=== PATIENT | female | born 1990 | race Caucasian/White ===

== ENCOUNTER 2016-10-14 21:18 | Emergency (ER) | payer OTHER ==
[~2016-10-14] VITALS: Ht 157.5 cm; Wt 68.0 kg
[2016-10-14 21:21] VITALS: BP 154/83; PULSE 98; RESP 16; TEMP 98.8; O2SAT 99
[2016-10-14 22:20] LABS: BACTERIA, URINE RARE /hpf; BLOOD, URINE NEG (NEG); COMMENT (UR) CULT NOT INDICATED; CULTURE IF INDICATED CULT NOT INDICATED; GLUCOSE,URINE NEG (NEG); KETONE, URINE NEG (NEG); NITRITE,URINE NEG (NEG); PH, URINE 5.5 (5.0-8.5); SQUAMOUS EPITHELIAL CELL URINE 2 /hpf (0-5); URINE COLOR LIGHT-YELLOW (YELLW/STRAW)
[2016-10-14 22:31] LABS: ANION GAP 9 MEQ/L (5-15); AST (GOT) 15 U/L (15-37); BICARBONATE 24.8 MEQ/L (21.0-32.0); BLOOD UREA NITROGEN 13 MG/DL (7-18); CHLORIDE 104 MEQ/L (98-107); GLOMERULAR FILTRATION RATE 78 ML/MIN (>89); POTASSIUM 3.6 MEQ/L (3.5-5.1); SODIUM (NA) 138 MEQ/L (136-145)
[2016-10-14 22:32] LABS: AUTOMATED NEUTROPHIL # 7.3 TH/MM3 (1.8-7.7); BASOPHIL % 0.3 % (0.0-2.0); EOSINOPHIL # 0.2 TH/MM3 (0-0.4); EOSINOPHIL % 1.8 % (0.0-4.0); HEMATOCRIT 41.1 % (35.0-46.0); HEMO FLAGS DIFF FINAL; LYMPH % 28.9 % (9.0-44.0); LYMPHOCYTE # 3.3 TH/MM3 (1.0-4.8); MEAN CELL VOLUME 88.6 FL (80.0-100.0); MEAN CORPUSCULAR HGB CONC 33.9 % (32.0-36.0); MONO % 5.8 % (0.0-8.0); NEUT % 63.2 % (16.0-70.0); PLATELET COUNT 213 TH/MM3 (150-450); RED BLOOD COUNT 4.64 MIL/MM3 (4.00-5.30); RED CELL DISTRIBUTION WIDTH 12.9 % (11.6-17.2); WHITE BLOOD COUNT 11.5 TH/MM3 (4.0-11.0)
[2016-10-14 22:35] LABS: ALKALINE PHOSPHATASE 61 U/L (45-117); ALT (GPT) 19 U/L (10-53); TOTAL BILIRUBIN ADULT 0.3 MG/DL (0.2-1.0)
[2016-10-15 03:22] LABS: BETA HCG QUANT 431 MIU/ML (0-5)
--- NOTE | 2016-10-15 03:43 | PD ---
HPI Chief Complaint: Related Problem Time Seen by Provider: 02:26 Travel History International Travel<30 days: No Contact w/Intl Traveler<30days: No Traveled to known affect area: No History of Present Illness HPI 26-year-old female with history of 2 ectopic pregnancies last year treated with methotrexate here for evaluation of possible ectopic . The patient had a positive home test. Her last menstrual period was September 13. She is having some cramping and some vaginal spotting. Cramping is mainly over her right lower quadrant. She states that her symptoms feel very similar to previous ectopic pregnancies. PFSH Past Medical History Diminished Hearing: No Gastrointestinal Disorders: Yes (hernia) GERD: Yes Genitourinary: Yes (KIDNEY REFLUX) Inguinal Hernia: Yes Immunizations Current: Yes Tetanus Vaccination: Unknown Influenza Vaccination: No ?: : 3 Para: 3 : 1 Past Surgical History Surgical History: No Previous Surgery Social History Alcohol Use: Yes (occ) Tobacco Use: Yes (09/26 PPD) Substance Use: No Allergies-Medications (Allergen,Severity, Reaction): Coded Allergies: Augmentin (Verified Allergy, Severe, THROAT SWELLING, 10/14/16) STATES THROAT CLOSED Flagyl (Verified Allergy, Severe, CONFUSED, 10/14/16) Reported Meds & Prescriptions Reported Meds & Active Scripts Active No Active Prescriptions or Reported Medications Review of Systems Except as stated in HPI: all other systems reviewed are Neg Physical Exam Narrative GENERAL: Pleasant, well-developed, well-nourished, comfortable, no acute distress. SKIN: Warm and dry. HEAD: Atraumatic. Normocephalic. EYES: Pupils equal and round. No scleral icterus. No injection or drainage. ENT: Mucous membranes pink and moist. CARDIOVASCULAR: Regular rate and rhythm. No murmur appreciated. RESPIRATORY: No accessory muscle use. Clear to auscultation. Breath sounds equal bilaterally. GASTROINTESTINAL: Abdomen soft, nondistended. Mild right lower quadrant tenderness without rebound or guarding. Normal bowel sounds. Rest of abdomen is soft and nontender. MUSCULOSKELETAL: No obvious deformities. No clubbing. No cyanosis. No edema. NEUROLOGICAL: Awake and alert. No obvious cranial nerve deficits. Motor grossly within normal limits. Normal speech. PSYCHIATRIC: Appropriate mood and affect; insight and judgment normal. Data Data Last Documented VS Vital Signs Date Time Temp Pulse Resp B/P Pulse Ox O2 Delivery O2 Flow Rate FiO2 1/21/17 02:28 16 10/14/16 21:21 98.8 98 154/83 99 Room Air Orders Complete Blood Count With Diff (10/14/16 21:34) Comprehensive Metabolic Panel (10/14/16 21:34) Urinalysis - C+S If Indicated (10/14/16 21:34) Ed Urine Pregnancytest Poc (10/14/16 21:34) Beta Hcg (Quant/Titer) (10/15/16 02:26) Us Pelvis (Ques Pr/Ect)W Trans (10/15/16 ) Lorazepam (Ativan) (10/15/16 05:00) Labs Laboratory Tests Test 10/14/16 10/14/16 21:40 21:45 Urine Color LIGHT-YELLOW Urine Turbidity CLEAR Urine pH 5.5 Urine Specific [place] 1.004 Urine Protein NEG mg/dL Urine Glucose (UA) NEG mg/dL Urine Ketones NEG mg/dL Urine Occult Blood NEG Urine Nitrite NEG Urine Bilirubin NEG Urine Urobilinogen LESS THAN 2.0 MG/DL Urine Leukocyte Esterase LARGE Urine WBC 7 /hpf Urine Squamous Epithelial 2 /hpf Cells Urine Bacteria RARE /hpf Microscopic Urinalysis Comment CULT NOT INDICATED White Blood Count 11.5 TH/MM3 Red Blood Count 4.64 MIL/MM3 Hemoglobin 13.9 GM/DL Hematocrit 41.1 % Mean Corpuscular Volume 88.6 FL Mean Corpuscular Hemoglobin 30.0 PG Mean Corpuscular Hemoglobin 33.9 % Concent Red Cell Distribution Width 12.9 % Platelet Count 213 TH/MM3 Mean Platelet Volume 8.4 FL Neutrophils (%) (Auto) 63.2 % Lymphocytes (%) (Auto) 28.9 % Monocytes (%) (Auto) 5.8 % Eosinophils (%) (Auto) 1.8 % Basophils (%) (Auto) 0.3 % Neutrophils # (Auto) 7.3 TH/MM3 Lymphocytes # (Auto) 3.3 TH/MM3 Monocytes # (Auto) 0.7 TH/MM3 Eosinophils # (Auto) 0.2 TH/MM3 Basophils # (Auto) 0.0 TH/MM3 CBC Comment DIFF FINAL Differential Comment Sodium Level 138 MEQ/L Potassium Level 3.6 MEQ/L Chloride Level 104 MEQ/L Carbon Dioxide Level 24.8 MEQ/L Anion Gap 9 MEQ/L Blood Urea Nitrogen 13 MG/DL Creatinine 0.87 MG/DL Estimat Glomerular Filtration 78 ML/MIN Rate Random Glucose 98 MG/DL Calcium Level 8.5 MG/DL Total Bilirubin 0.3 MG/DL Aspartate Amino Transf 15 U/L (AST/SGOT) Alanine Aminotransferase 19 U/L (ALT/SGPT) Alkaline Phosphatase 61 U/L Total Protein 7.9 GM/DL Albumin 4.1 GM/DL Human Chorionic Gonadotropin, 431 MIU/ML Quant MDM Medical Decision Making Medical Screen Exam Complete: Yes Emergency Medical Condition: Yes Differential Diagnosis Ectopic , ovarian cyst, ovarian torsion, normal , threatened , appendicitis, colitis, cystitis Narrative Course Vital signs show heart rate 98, blood pressure 154/83, pulse ox 99% on room air , oral temp of 98.8F. CBC is unremarkable. CMP is unremarkable. Beta hCG is 431. Blood type from previous ED visits is A+. UA is not suggestive of UTI. Pelvic ultrasound: CONCLUSION: 1. An intrauterine cannot be confirmed. 2. Thick rim cystic area in the right adnexa with thin peripheral flow on color Doppler is nonspecific in appearance, but could represent an ectopic , especially considering the history of multiple ectopic pregnancies in the past. 4:15 AM: Case discussed with on-call OB hospitalist who will present to the emergency department to evaluate the patient. Patient was evaluated at the bedside by OB hospitalist Dr. Molina who had a long discussion with the patient. He offered to observe her, however the patient does not wish to be observed at this time. Ectopic cannot exactly be confirmed at this time, however given her history and imaging studies , there is a high suspicion for ectopic . Her abdominal exam is benign. No peritoneal signs. Plan at this time is for the patient to be discharged home and to return in 48 hours for a repeat beta hCG. The patient was informed on when to return to the emergency Department sooner. She verbalizes understanding and agreement with plan. The patient has history of anxiety and is requesting something for her anxiety. I will give her a dose of Ativan. Diagnosis Primary Impression: Early stage of Referrals: Digital Sales Assistant 1 day Additional Instructions: Return to the emergency department in 48 hours for repeat beta hCG. Return to the emergency Department sooner for worsening symptoms or any other concerns as discussed. Scripts No Active Prescriptions or Reported Meds Disposition: 01 DISCHARGE HOME Condition: Stable Star Welch MD Oct 15, 2016 03:43
--- NOTE | 2016-10-15 04:08 | RADRPT ---
EXAM DATE/TIME: 10/15/2016 03:21 [facility] COMPARISON: US PELVIS (QUEST PREG/ECTOPIC) W/TRANSVAG, May 30, 2016, 17:35. INDICATIONS : Pelvic pain and vaginal bleeding. History of 2 ectopic pregnancies in the past year. LAB(S): Beta-hC MEDICAL HISTORY : . Gastroesophageal reflux disease. Hernia, inguinal. SURGICAL HISTORY : Inguinal hernia repair. ENCOUNTER: Subsequent ACUITY: 4-6 days PAIN SCORE: 7/10 LOCATION: Right pelvis MEASUREMENTS: UTERUS: 8.4 x 4.6 x 6.0 cm ENDOMETRIAL STRIPE: 11 mm RIGHT OVARY: 4.2 x 2.9 x 2.3 cm LEFT OVARY: 2.9 x 1.8 x 1.8 cm FINDINGS: The endometrium is a homogeneous echotexture in the body and the fundus. There is a small amount of endometrial fluid in the lower uterine segment. No myometrial abnormality is seen. In the right adnexa, there is a cystic structure with a thick surrounding rim which measures in aggre gate 2.2 x 1.8 x 1.6 cm. On color Doppler imaging, there is peripheral flow about this area. No carol e fluid seen in the right adnexal region. The left ovary has a normal appearance. There is a mild a mount of free fluid in the cul-de-sac. CONCLUSION: 1. An intrauterine cannot be confirmed. 2. Thick rim cystic area in the right adnexa with thin peripheral flow on color Doppler is nonspecifi c in appearance, but could represent an ectopic , especially considering the history of mult iple ectopic pregnancies in the past. Mata Franco MD on October 15, 2016 at 4:02 Board Certified Radiologist. This report was verified electronically.
[2016-10-15] MEDS ORDERED: LORazepam 1 MG TAB PO ONE (05:00)
--- NOTE | 2016-10-15 05:25 | PD.CONS ---
HPI Chief Complaint Vaginal bleeding and cramping Date Seen: Oct 15, 2016 Time Seen: 04:30 Travel History International Travel<30 Days: No Contact w/Intl Traveler<30Days: No Known Affected Area: No History of Present Illness HPI The patient is a 26-year-old 7 para 3, elective AB 1, ectopic 2 with a last menstrual period of September 15 which would make her 4 weeks and 1 day with an EDC of June 22. She reports less than 1 day history of light vaginal bleeding and cramping like her period is going to start. She is concerned that she may have an ectopic . She denies any fainting, dizziness, severe abdominal pain. She has had 2 ectopic pregnancies both in 2016. One was in December and 1 in May and she reports they were both treated with methotrexate by Dr. Parekh in [place]. She is Rh+. Evaluation in the emergency room tonight demonstrated a beta hCG of 431 which was drawn at approximately 9 PM Monday. Ultrasound was performed which demonstrated no clear evidence of an intrauterine . There is a small cystic structure in the right adnexa with a vascular rim which has no features diagnostic of ectopic but is suspicious. There is no free fluid within the pelvis. Para: 3 : 7 Last Menstrual Period: Sep 15, 2016 : 1 History Past Medical History Narrative Medical No chronic medical diseases Medical History: Denies Significant Hx Obstetric History Obstetric History 3 vaginal deliveries, one surgical elective , 2 ectopic pregnancies treated with methotrexate She reports being Rh+ which is confirmed in her medical record Past Surgical History Narrative Surgical D&C Family History Family History: Negative Social History Alcohol Use: Yes (social) Tobacco Use: Yes (one half pack per day smoker) Substance Abuse: No Allergies-Medications (Allergen,Severity, Reaction): Coded Allergies: Augmentin (Verified Allergy, Severe, THROAT SWELLING, 10/14/16) STATES THROAT CLOSED Flagyl (Verified Allergy, Severe, CONFUSED, 10/14/16) Home Meds No Active Prescriptions or Reported Meds Review of Systems Except as stated in HPI: all other systems reviewed are Neg Physical Exam Narrative GENERAL: Well-nourished, well-developed patient. SKIN: Warm and dry. HEAD: Normocephalic and atraumatic. EYES: No scleral icterus. No injection or drainage. ENT: No nasal drainage noted. Mucous membranes pink. Airway patent. NECK: Supple, trachea midline. No JVD. CARDIOVASCULAR: Regular rate and rhythm without murmurs, gallops, or rubs. RESPIRATORY: Breath sounds equal bilaterally. No accessory muscle use. ABDOMEN/GI: Abdomen soft, non-tender, bowel sounds present, no rebound, no guarding EXTREMITIES: No cyanosis or edema. BACK: Nontender without obvious deformity. No CVA tenderness. NEUROLOGICAL: Awake and alert. Motor and sensory grossly within normal limits. Five out of 5 muscle strength in all muscle groups. Normal speech. Data Data Orders Complete Blood Count With Diff (10/14/16 21:34) Comprehensive Metabolic Panel (10/14/16 21:34) Urinalysis - C+S If Indicated (10/14/16 21:34) Ed Urine Pregnancytest Poc (10/14/16 21:34) Beta Hcg (Quant/Titer) (10/15/16 02:26) Us Pelvis (Ques Pr/Ect)W Trans (10/15/16 ) Lorazepam (Ativan) (10/15/16 05:00) Labs Laboratory Tests Test 10/14/16 10/14/16 21:40 21:45 Urine Color LIGHT-YELLOW Urine Turbidity CLEAR Urine pH 5.5 Urine Specific [place] 1.004 Urine Protein NEG Urine Glucose (UA) NEG Urine Ketones NEG Urine Occult Blood NEG Urine Nitrite NEG Urine Bilirubin NEG Urine Urobilinogen LESS THAN 2.0 Urine Leukocyte Esterase LARGE Urine WBC 7 Urine Squamous Epithelial 2 Cells Urine Bacteria RARE Microscopic Urinalysis Comment CULT NOT INDICATED White Blood Count 11.5 Red Blood Count 4.64 Hemoglobin 13.9 Hematocrit 41.1 Mean Corpuscular Volume 88.6 Mean Corpuscular Hemoglobin 30.0 Mean Corpuscular Hemoglobin 33.9 Concent Red Cell Distribution Width 12.9 Platelet Count 213 Mean Platelet Volume 8.4 Neutrophils (%) (Auto) 63.2 Lymphocytes (%) (Auto) 28.9 Monocytes (%) (Auto) 5.8 Eosinophils (%) (Auto) 1.8 Basophils (%) (Auto) 0.3 Neutrophils # (Auto) 7.3 Lymphocytes # (Auto) 3.3 Monocytes # (Auto) 0.7 Eosinophils # (Auto) 0.2 Basophils # (Auto) 0.0 CBC Comment DIFF FINAL Differential Comment Sodium Level 138 Potassium Level 3.6 Chloride Level 104 Carbon Dioxide Level 24.8 Anion Gap 9 Blood Urea Nitrogen 13 Creatinine 0.87 Estimat Glomerular Filtration 78 Rate Random Glucose 98 Calcium Level 8.5 Total Bilirubin 0.3 Aspartate Amino Transf 15 (AST/SGOT) Alanine Aminotransferase 19 (ALT/SGPT) Alkaline Phosphatase 61 Total Protein 7.9 Albumin 4.1 Human Chorionic Gonadotropin, 431 Quant MDM Medical Record Reviewed: Yes Narrative Course / MDM 26-year-old female with 2 prior ectopic pregnancies at 4 weeks gestation with vaginal bleeding and of undetermined location Plan: I reviewed with the patient's tinnitus findings and we discussed different treatment options. She would like to undertake outpatient evaluation and will return to the emergency room on Monday night for repeat quantitative beta hCG. She will return to the emergency room sooner if she has increasing pain or other symptoms suggestive of ectopic . She reports having transportation and adult support. Phone number: [phone] Disposition: 01 DISCHARGE HOME Condition: Stable Scripts No Active Prescriptions or Reported Meds Referrals: Card Services Specialist 1 day Patient Instructions: General Instructions, (ED) Additional Instructions: Return to the emergency department in 48 hours for repeat beta hCG. Return to the emergency Department sooner for worsening symptoms or any other concerns as discussed. Departure Forms: Tests/Procedures Arnol Kaplan MD Oct 15, 2016 05:25
== END 2016-10-15 05:41 | disposition home or self-care (01) ==
LOC: NEPE 21:18
DX: O09.10 Supervision of pregnancy with history of ectopic pregnancy, unspecified trimester (principal); O99.330 Smoking (tobacco) complicating pregnancy, unspecified trimester
CPT/HCPCS: 76700; 76817; 80053; 81001; 84702; 84703; 85025

== ENCOUNTER 2016-10-16 14:19 | Emergency (ER) | payer OTHER ==
[~2016-10-16] VITALS: Ht 157.5 cm; Wt 68.2 kg
[2016-10-16 14:30] VITALS: BP 129/62; PULSE 92; RESP 18; TEMP 98.3; O2SAT 100
--- NOTE | 2016-10-16 15:57 | PD ---
HPI Chief Complaint: Related Problem Time Seen by Provider: 15:46 Travel History International Travel<30 days: No Contact w/Intl Traveler<30days: No Traveled to known affect area: No History of Present Illness HPI This is a 26-year-old female who has a history of 2 ectopic pregnancies in the past who presents to the emergency department with right lower quadrant and pelvic abdominal pain that's been present for 1 week, intermittent associated with vaginal spotting. She is . She says these symptoms feel exactly like her prior ectopic pregnancies. She was seen here 2 days ago in the emergency department and was found to have a cystic structure in her right adnexa. At that time her hCG was in the 400s. She was asked to return for repeat hCG. She denies any change in her symptoms. She is not felt lightheaded or dizzy. PFSH Past Medical History Diminished Hearing: No Gastrointestinal Disorders: Yes (hernia) GERD: Yes Genitourinary: Yes (KIDNEY REFLUX) Inguinal Hernia: Yes Immunizations Current: Yes ?: LMP: 09/14/16 : 3 Para: 3 : 1 Social History Alcohol Use: Yes (social) Tobacco Use: Yes (one half pack per day smoker) Substance Use: No Allergies-Medications (Allergen,Severity, Reaction): Coded Allergies: Augmentin (Verified Allergy, Severe, THROAT SWELLING, 10/16/16) STATES THROAT CLOSED Flagyl (Verified Allergy, Severe, CONFUSED, 10/16/16) Reported Meds & Prescriptions Reported Meds & Active Scripts Active No Active Prescriptions or Reported Medications Review of Systems Except as stated in HPI: all other systems reviewed are Neg Physical Exam Narrative GENERAL:Well appearing, no acute distress SKIN: Warm and dry. HEAD: Atraumatic. Normocephalic. EYES: Pupils equal and round. No injection or drainage. ENT: Moist mucous membranes NECK: Trachea midline. CARDIOVASCULAR: Regular rate and rhythm. No murmur appreciated. RESPIRATORY: Clear to auscultation. Breath sounds equal bilaterally. GASTROINTESTINAL: Abdomen soft, non-tender, nondistended. MUSCULOSKELETAL: No obvious deformities. NEUROLOGICAL: Awake and alert. No obvious cranial nerve deficits. Moving all extremities. PSYCHIATRIC: Appropriate mood and affect; insight and judgment normal. Data Data Last Documented VS Vital Signs Date Time Temp Pulse Resp B/P Pulse Ox O2 Delivery O2 Flow Rate FiO2 10/16/16 16:14 82 18 10/16/16 16:14 124/69 98 Room Air 10/16/16 14:30 98.3 Orders Beta Hcg (Quant/Titer) (10/16/16 15:47) Labs Laboratory Tests Test 10/16/16 16:10 Human Chorionic Gonadotropin, 964 MIU/ML Quant MDM Medical Decision Making Medical Screen Exam Complete: Yes Emergency Medical Condition: Yes Interpretation(s) afebrile, no tachycardia, normotensive hcg 964 Differential Diagnosis Ectopic , threatened miscarriage, miscarriage Narrative Course This is a 26-year-old female who has a history of 2 ectopic pregnancies in the past with some vaginal spotting and lower abdominal cramping. 2 days ago she had an ultrasound which is concerning for ectopic but her beta-hCG was in the 400s. Today it is 900 and appropriately doubled. I spoke to the OB hospitalist who recommended the patient return in 48 hours for repeat hCG and pelvic ultrasound. Patient understands instructions and will return sooner if she develops any new or worsening symptoms of lightheadedness, dizziness or severe abdominal pain. Diagnosis Primary Impression: Bleeding in early Patient Instructions: General Instructions Additional Instructions: If you develop severe abdominal pain, lightheadedness dizziness or worsening symptoms return to the emergency room. Return to the emergency room in 2 days for repeat ultrasound and hCG level without fail. Med/Other Pt SpecificInfo: No Change to Meds Scripts No Active Prescriptions or Reported Meds Disposition: 01 DISCHARGE HOME Condition: Stable Alaina Lyons MD Oct 16, 2016 15:57
[2016-10-16 16:14] VITALS: BP 124/69; PULSE 87; RESP 18; O2SAT 98
[2016-10-16 16:55] LABS: BETA HCG QUANT 964 MIU/ML (0-5)
[2016-10-16 17:44] VITALS: BP 134/67; TEMP 98.4
== END 2016-10-16 17:20 | disposition home or self-care (01) ==
LOC: NEPE 14:19
DX: O20.9 Hemorrhage in early pregnancy, unspecified (principal); O09.11 Supervision of pregnancy with history of ectopic pregnancy, first trimester; O99.331 Smoking (tobacco) complicating pregnancy, first trimester; F17.210 Nicotine dependence, cigarettes, uncomplicated; Z3A.00 Weeks of gestation of pregnancy not specified
CPT/HCPCS: 84702; 99284

== ENCOUNTER 2016-10-18 11:08 | Emergency (ER) | payer OTHER ==
[~2016-10-18] VITALS: Ht 157.5 cm; Wt 70.0 kg
[2016-10-18 11:12] VITALS: BP 141/80; PULSE 98; RESP 14; TEMP 98.1; O2SAT 99
--- NOTE | 2016-10-18 11:48 | PD ---
HPI Chief Complaint: Related Problem Time Seen by Provider: 11:48 Travel History International Travel<30 days: No Contact w/Intl Traveler<30days: No Traveled to known affect area: No History of Present Illness HPI 26-year-old female approximately 5 weeks presents to the emergency department for evaluation of possible ectopic . Patient has been seen here twice over the last 4 days for right lower quadrant cramping and light pink vaginal spotting. She has had a history of 2 previous ectopic pregnancies within the last year. She had an ultrasound 4 days ago that was inconclusive for ectopic . Her beta hCG doubled appropriately from 10/14-10/16. She is here today to have another beta and ultrasound. States that she is still having about 4 episodes of right lower quadrant cramping throughout the day with a few episodes of light pink spotting. States she has also had nonbloody diarrhea for the past 2 days. She denies any fever, chills, nausea, vomiting, burning with urination, painful urination, vaginal discharge. Denies any prior abdominal surgeries. No other complaints. PFSH Past Medical History Diminished Hearing: No Gastrointestinal Disorders: Yes (hernia) GERD: Yes Genitourinary: Yes (KIDNEY REFLUX) Inguinal Hernia: Yes Immunizations Current: Yes ?: Unknown LMP: 09/14/16 : 3 Para: 3 : 1 Social History Alcohol Use: No Tobacco Use: No Substance Use: No Allergies-Medications (Allergen,Severity, Reaction): Coded Allergies: Augmentin (Verified Allergy, Severe, THROAT SWELLING, 10/18/16) STATES THROAT CLOSED Flagyl (Verified Allergy, Severe, CONFUSED, 10/18/16) Reported Meds & Prescriptions Reported Meds & Active Scripts Active No Active Prescriptions or Reported Medications Review of Systems Except as stated in HPI: all other systems reviewed are Neg Physical Exam Narrative GENERAL: Well-nourished and well-developed pleasant patient in no acute distress who is nontoxic appearing. SKIN: Warm and dry. HEAD: Normocephalic and atraumatic. EYES: No injection, drainage, or hyphema noted. PERRLA. EOMI. ENT: No nasal drainage noted. Oropharynx is clear. NECK: Supple and the trachea is midline. CARDIOVASCULAR: Regular rate and rhythm. RESPIRATORY: Breath sounds are equal bilaterally with no accessory muscle use, wheezing, rhonchi, or crackles. GASTROINTESTINAL: Tenderness to palpation of right lower quadrant. No rebound tenderness or guarding. Abdomen is soft and nondistended. MUSCULOSKELETAL: No obvious deformities, swelling, cyanosis, or ecchymosis is present throughout the upper and lower extremities. Patient has full range of motion without any signs of neurovascular compromise. NEUROLOGICAL: Awake, alert, and oriented. Normal speech and gait. Cranial nerves are grossly intact. Data Data Last Documented VS Vital Signs Date Time Temp Pulse Resp B/P Pulse Ox O2 Delivery O2 Flow Rate FiO2 10/18/16 11:12 98.1 98 14 141/80 99 Room Air Orders Beta Hcg (Quant/Titer) (10/18/16 11:35) Complete Blood Count With Diff (10/18/16 11:55) Us Pelvis (Ques Pr/Ect)W Trans (10/18/16 ) Labs Laboratory Tests Test 10/18/16 10/18/16 11:51 12:01 Human Chorionic Gonadotropin, 2320 MIU/ML Quant White Blood Count 8.8 TH/MM3 Red Blood Count 4.28 MIL/MM3 Hemoglobin 13.1 GM/DL Hematocrit 37.7 % Mean Corpuscular Volume 88.0 FL Mean Corpuscular Hemoglobin 30.7 PG Mean Corpuscular Hemoglobin 34.9 % Concent Red Cell Distribution Width 12.8 % Platelet Count 195 TH/MM3 Mean Platelet Volume 7.9 FL Neutrophils (%) (Auto) 65.1 % Lymphocytes (%) (Auto) 26.4 % Monocytes (%) (Auto) 7.1 % Eosinophils (%) (Auto) 1.2 % Basophils (%) (Auto) 0.2 % Neutrophils # (Auto) 5.7 TH/MM3 Lymphocytes # (Auto) 2.3 TH/MM3 Monocytes # (Auto) 0.6 TH/MM3 Eosinophils # (Auto) 0.1 TH/MM3 Basophils # (Auto) 0.0 TH/MM3 CBC Comment DIFF FINAL Differential Comment MDM Medical Decision Making Medical Screen Exam Complete: Yes Emergency Medical Condition: Yes Differential Diagnosis Ectopic versus intrauterine versus threatened versus appendicitis Narrative Course 26-year-old female presents to the emergency department for evaluation of possible ectopic . Patient is afebrile. She is slightly tachycardic but is admittedly anxious. Otherwise vital signs are stable. She does have right lower quadrant tenderness to palpation but no peritoneal signs. Beta hcg and cbc has been ordered. Ultrasound has been ordered. CBC is unremarkable. Beta hCG is 20//20. This is appropriately doubled since her previous beta hCG. Ultrasound shows a 5 mm cystic structure in the endometrium consistent with early gestation, no pole. There is a 1.9 cm complex cystic area on the right ovary most likely corpus luteal cyst. Patient has remained stable and without complaint while here in the emergency department. Discussed the findings with the patient. This does not appear to be an ectopic . Discussed signs and symptoms of when to return to the emergency department. Instructed to follow-up with her truck hopper. Patient verbalizes understanding and agreement with treatment plan. I discussed the case with my attending physician Dr. Edmondson who is aware of the patients history, physical examination findings, and treatment plan. Diagnosis Primary Impression: Early stage of Additional Impression: Right ovarian cyst Referrals: Sorting Livestock Worker Patient Instructions: General Instructions, Ovarian Cyst (ED) Additional Instructions: Follow-up with your CLIENT ACCOUNT ASSISTANT. Return to the ED for any acute worsening of symptoms. Med/Other Pt SpecificInfo: No Change to Meds Scripts No Active Prescriptions or Reported Meds Disposition: 01 DISCHARGE HOME Condition: Stable Roxie Arce Oct 18, 2016 11:48
[2016-10-18 12:32] LABS: AUTOMATED NEUTROPHIL # 5.7 TH/MM3 (1.8-7.7); BASOPHIL % 0.2 % (0.0-2.0); EOSINOPHIL # 0.1 TH/MM3 (0-0.4); EOSINOPHIL % 1.2 % (0.0-4.0); HEMATOCRIT 37.7 % (35.0-46.0); HEMO FLAGS DIFF FINAL; LYMPH % 26.4 % (9.0-44.0); LYMPHOCYTE # 2.3 TH/MM3 (1.0-4.8); MEAN CORPUSCULAR HEMOGLOBIN 30.7 PG (27.0-34.0); MEAN CORPUSCULAR HGB CONC 34.9 % (32.0-36.0); MONO % 7.1 % (0.0-8.0); NEUT % 65.1 % (16.0-70.0); PLATELET COUNT 195 TH/MM3 (150-450); RED BLOOD COUNT 4.28 MIL/MM3 (4.00-5.30); RED CELL DISTRIBUTION WIDTH 12.8 % (11.6-17.2); WHITE BLOOD COUNT 8.8 TH/MM3 (4.0-11.0)
[2016-10-18 12:47] LABS: BETA HCG QUANT 2320 MIU/ML (0-5)
--- NOTE | 2016-10-18 13:09 | RADRPT ---
EXAM DATE/TIME: 10/18/2016 12:13 [place] COMPARISON: No previous studies available for comparison. INDICATIONS : Pelvic pain and vaginal spotting. LAB(S): Beta-hC,320 MEDICAL HISTORY : . Gastroesophageal reflux disease. Hernia, inguinal. Ectopic , x2. SURGICAL HISTORY : Inguinal hernia repair. ENCOUNTER: Initial ACUITY: 2 weeks PAIN SCORE: 4/10 LOCATION: Right pelvis MEASUREMENTS: UTERUS: 9.1 x 4.8 x 5.5 cm ENDOMETRIAL STRIPE: 15 mm RIGHT OVARY: 4.0 x 2.3 x 2.2 cm LEFT OVARY: 2.9 x 1.8 x 1.9 cm FINDINGS: There is a 5 mm cystic structure in the endometrium consistent with a early gestational . No pole yolk sac is seen. In the right ovary there is a 1.9 cm complex cystic area most likely co rpus luteal cysts. Trace free fluid in the cul-de-sac. CONCLUSION: Possible early 5 mm cystic area in the endometrium. 1.9 cm complex right ovarian cyst. Free fluid in the cul-de-sac Hunter Sanchez MD on October 18, 2016 at 13:06 Board Certified Radiologist. This report was verified electronically.
--- NOTE | 2016-10-18 13:31 | PD ---
Data Data Last Documented VS Vital Signs Date Time Temp Pulse Resp B/P Pulse Ox O2 Delivery O2 Flow Rate FiO2 10/18/16 11:12 98.1 98 14 141/80 99 Room Air Orders Beta Hcg (Quant/Titer) (10/18/16 11:35) Complete Blood Count With Diff (10/18/16 11:55) Us Pelvis (Ques Pr/Ect)W Trans (10/18/16 ) Labs Laboratory Tests Test 10/18/16 10/18/16 11:51 12:01 Human Chorionic Gonadotropin, 2320 MIU/ML Quant White Blood Count 8.8 TH/MM3 Red Blood Count 4.28 MIL/MM3 Hemoglobin 13.1 GM/DL Hematocrit 37.7 % Mean Corpuscular Volume 88.0 FL Mean Corpuscular Hemoglobin 30.7 PG Mean Corpuscular Hemoglobin 34.9 % Concent Red Cell Distribution Width 12.8 % Platelet Count 195 TH/MM3 Mean Platelet Volume 7.9 FL Neutrophils (%) (Auto) 65.1 % Lymphocytes (%) (Auto) 26.4 % Monocytes (%) (Auto) 7.1 % Eosinophils (%) (Auto) 1.2 % Basophils (%) (Auto) 0.2 % Neutrophils # (Auto) 5.7 TH/MM3 Lymphocytes # (Auto) 2.3 TH/MM3 Monocytes # (Auto) 0.6 TH/MM3 Eosinophils # (Auto) 0.1 TH/MM3 Basophils # (Auto) 0.0 TH/MM3 CBC Comment DIFF FINAL Differential Comment MDM Supervised Visit with MADELYN: Yes Narrative Course I, Dr. Edmondson, have reviewed the advance practice practioner's documentation and am in agreement, met with the patient face to face, made the diagnosis, and the medical decision making was done by me. *My assessment and Findings: 26-year-old female approximately 5 weeks' gestational age here with complaint of possible ectopic . Patient has seen here recently with increasing beta hCG, no definitive IUP. Patient has had 2 previous tubal pregnancies on the right treated with methotrexate. She was instructed to return to the ED today for serial beta Quant. Her right lower quadrant cramping is intermittent, lasts for 1-2 seconds, sharp. Associated with light pink spotting that has not changed in the interim. Her abdominal examination is benign and I'm unable to reproduce any pain. Differential includes , ectopic . She's had 2 urinalysis that have been negative. My suspicion for appendicitis given her intermittent 1 -2 seconds of pain is extremely low. Beta Quant today 2320, continues to elevate appropriately. Transvaginal ultrasound shows possible early 5 mm cystic area in the endometrium. This is consistent with early gestational . No pole or yolk lack is seen. 1.9 cm complex cystic area most likely corpus luteal cyst within the right ovary. Patient was informed of these results and instructed to follow-up with [facility] and return to the ER for the warning signs discussed. Scripts No Active Prescriptions or Reported Meds Winnie Edmondson MD Oct 18, 2016 13:30
[2016-10-18 13:41] VITALS: BP 130/75
== END 2016-10-18 13:41 | disposition home or self-care (01) ==
LOC: NEPB 11:08
DX: O26.91 Pregnancy related conditions, unspecified, first trimester (principal); N83.201 Unspecified ovarian cyst, right side; Z3A.01 Less than 8 weeks gestation of pregnancy
CPT/HCPCS: 76700; 76817; 84702; 85025

== ENCOUNTER 2017-03-26 21:08 | Emergency (ER) | payer SELFPAY ==
[~2017-03-26] VITALS: Ht 157.5 cm; Wt 76.5 kg
[2017-03-26 21:31] VITALS: BP 135/95; PULSE 74; RESP 18; TEMP 98.7; O2SAT 99
== END 2017-03-26 21:33 | disposition left against medical advice (07) ==
LOC: PHED 21:08
DX: M54.2 Cervicalgia (principal); R07.81 Pleurodynia; R51 Headache; Z53.21 Procedure and treatment not carried out due to patient leaving prior to being seen by health care provider
CPT/HCPCS: 99281